=== PATIENT | male | born 1990 | race Caucasian/White ===

== ENCOUNTER 2018-03-23 23:41 | Inpatient (IN) | payer BC, OTHER ==
[2018-03-24 00:47] LABS: ALT (SGPT) 8 U/L (8-55); AST (SGOT) 16 U/L (5-34); Acetaminophen Less than 6.0 mcg/mL (10.0-30.0); Albumin 4.7 g/dL (3.5-5.0); Alcohol Less than 10 mg/dL (Less than 10); Alkaline Phosphatase 112 U/L (40-150); Anion Gap 15 mmol/L (10-20); BUN (Urea Nitrogen) 19 mg/dL (8.9-20.6); Band 5 % (5-11); Bilirubin, Total 0.6 mg/dL (0.2-1.2); Calc. Creatinine Clearance 0 mL/min (70-130); Carbon Dioxide 31 mmol/L (22-29); Chloride 99 mmol/L (98-107); Estimated GFR-MDRD 42; Globulin 3.3 g/dL (2.4-3.5); Glucose 132 mg/dL (70-105); Hemoglobin 15.9 g/dL (14.0-18.0); Lymphocytes 11 % (21-51); MDiff Complete? YES; Magnesium 1.6 mg/dL (1.6-2.6); Mean Corpuscular HGB CONC 34.6 g/dL (32.0-36.0); Mean Corpuscular Hemoglobin 30.4 pg (27.0-31.0); Mean Corpuscular Volume 87.8 fL (78.0-98.0); Mean Platelet Volume 6.7 fL (7.4-10.4); Monocytes 4 % (0-10); Neutrophil 80 % (42-75); PLT Morphology Comment Appears Adequate; Platelet Count 280 thou/uL (130-400); Potassium 3.1 mmol/L (3.5-5.1); RBC Distribution Width 10.4 % (11.5-14.5); Red Blood Cell (RBC) Count 5.22 mill/uL (4.70-6.10); Salicylate Less than 8.0 mg/dL (15.0-30.0); Sodium 142 mmol/L (136-145); White Blood Cell (WBC) Count 16.1 thou/uL (4.8-10.8)
[2018-03-24 00:48] LABS: Calcium 16.9 mg/dL (7.8-10.44)
[2018-03-24 01:01] LABS: Lipase 3295 U/L (8-78)
[2018-03-24 01:10] LABS: HIV (1/2) Antibody/Antigen Non-Reactive (NonReactive); HIV 1/2 INDEX 0.08 S/CO (<1.00); Thyroid Stimulating Hormone 1.3834 uIU/mL (0.35-4.94)
--- NOTE | 2018-03-24 01:24 | PDOC.FPRHP ---
- History of Present Illness Chief Complaint: Vomiting & AMS History of Present Illness: Mr Rockwell is a 27yo Male presenting [facility] for [facility] and AMS. At time of interview he was a poor historian 2/2 disorientation and incomprehensible speech at times. Systems started this morning, he last vomited at 3pm. He reports abdominal pain that is diffuse but worse in the LLQ. Stated he has a hx of recurrent kidney stones and hypercalcemia. Also reported hx of pancreatitis that resulted from an episode of hypercalcemia. Family hx notable for mother with recurrent kidney stones and hypercalcemia. ED Course: After lab result of Ca 16.9, patient received 3L NS, calcitonin 4mg/kg, Zoledronic acid 4mg, and orders to receive lasix after fluid resuscitation. He also received an extensive workup for his AMS including UDS (positive only for prescribed benzos), head CT which was unremarkable, HIV neg, TSH normal, ammonia nml. His lipase was elevated at [address] was performed. CT: Moderate-large amt of fluid upper abdomen, bilateral paracolic spaces and small amount in pelvis. Suspicious for pancreatitis. - Allergies/Adverse Reactions Allergies Allergy/AdvReac Type Severity Reaction Status Date / Time promethazine Allergy Verified 03/24/18 01:03 - Home Medications Medication Instructions Recorded Confirmed Type Cetirizine HCl 10 mg PO DAILY 03/24/18 03/24/18 History Cyclobenzaprine [Flexeril] 10 mg PO BID 03/24/18 03/24/18 History FLUoxetine HCl 40 mg PO DAILY 03/24/18 03/24/18 History Fluticasone Propionate [Flonase 1 spray EA NARE DAILY 03/24/18 03/24/18 History Nasal [place]] Hydrocortisone 1% Cream 1 applic TOP TID 03/24/18 03/24/18 History Lamotrigine [lamoTRIgine] 200 mg PO BID 03/24/18 03/24/18 History cloNIDine [Catapres] 0.1 mg PO BID 03/24/18 03/24/18 History hydrOXYzine HCl [Hydroxyzine HCl] 50 mg PO BID 03/24/18 03/24/18 History traZODone HCl [Trazodone HCl] 50 mg PO HS 03/24/18 03/24/18 History - History PMHx: Bipolar disorder, OCD, borderline personality disorder, hypercalcemia, kidney stones, prior drug abuse PSHx: ?nephrolithotomy vs.lithotripsy FHx: Mother- hypercalcemia and recurrent kidney stones Social: Has been in Prison since January. Denies alcohol, drug, tobacco use. Hx of tobacco and drug abuse - Review of Systems ROS unobtainable: due to mental status (unable to obtain full ROS 2/2 disorientation) General: denies: fever/chills Respiratory: denies: shortness of breath Cardiovascular: denies: chest pain Gastrointestinal: reports: vomiting, abdominal pain - Vital signs BP: 154/107 HR: 120 RR: 16 Tmax: 98.4 Pox: 99% on RA - Physical Exam Constitutional: other (shaking, alert, oriented to person and year. Not oriented to place or situation.) HEENT: normocephalic and atraumatic, PERRLA, TM's clear and intact, other (dry mucous membranes) Neck: supple, trachea midline Heart: RRR, no murmurs/rubs/gallops Lungs: CTAB, no respiratory distress, no wheezing Abdomen: bowel sounds present, other (tender to palpation all 4 quadrants. Most severe in LLQ) Musculoskeletal: normal structure Skin: capillary refill <2 seconds, other (erythematous macular truncal rash starting at neck and extending lower abdomen) Psychiatric: other (fast speech, incoherent thought process, loose associations. Poor insight.) FMR H&P: Results - Labs Result Diagrams: 03/24/18 00:18 03/24/18 00:18 Lab results: WBC 16.1 thou/uL (4.8-10.8) H 03/24/18 00:18 Hgb 15.9 g/dL (14.0-18.0) 03/24/18 00:18 Hct 45.8 % (42.0-52.0) 03/24/18 00:18 MCV 87.8 fL (78.0-98.0) 03/24/18 00:18 Plt Count 280 thou/uL (130-400) 03/24/18 00:18 Band Neuts % (Manual) 5 % (5-11) 03/24/18 00:18 Sodium 142 mmol/L (136-145) 03/24/18 00:18 Potassium 3.1 mmol/L (3.5-5.1) L 03/24/18 00:18 Chloride 99 mmol/L (98-107) 03/24/18 00:18 Carbon Dioxide 31 mmol/L (22-29) H 03/24/18 00:18 BUN 19 mg/dL (8.9-20.6) 03/24/18 00:18 Creatinine 1.91 mg/dL (0.6-1.3) H 03/24/18 00:18 Glucose 132 mg/dL (70-105) H 03/24/18 00:18 Calcium 16.9 mg/dL (7.8-10.44) H* 03/24/18 00:18 Total Bilirubin 0.6 mg/dL (0.2-1.2) 03/24/18 00:18 AST 16 U/L (5-34) 03/24/18 00:18 ALT 8 U/L (8-55) 03/24/18 00:18 Alkaline Phosphatase 112 U/L (40-150) 03/24/18 00:18 Ammonia 34 umol/L (18-72) 03/24/18 00:18 Serum Total Protein 8.0 g/dL (6.0-8.3) 03/24/18 00:18 Albumin 4.7 g/dL (3.5-5.0) 03/24/18 00:18 Lipase 3295 U/L (8-78) H 03/24/18 00:18 - EKG Interpretation EKG: Sinus Tach 119 - Radiology Interpretation CT scan - head Status: report reviewed by me Additional comment: unremarkable Chest x-ray Status: report reviewed by me CT scan - abdomen Status: report reviewed by me Additional comment: Moderate-large amt of fluid upper abdomen, bilateral paracolic spaces and small amount in pelvis. Suspicious for pancreatitis. Bladder distention also noted. FMR H&P: A/P - Problem List (1) Pancreatitis Current Visit: Yes Status: Acute Code(s): K85.90 - ACUTE PANCREATITIS WITHOUT NECROSIS OR INFECTION, UNSP (2) Hypercalcemia Current Visit: Yes Status: Acute Code(s): E83.52 - HYPERCALCEMIA (3) SHELBIE (acute kidney injury) Current Visit: Yes Status: Acute Code(s): N17.9 - ACUTE KIDNEY FAILURE, UNSPECIFIED (4) Urinary retention Current Visit: Yes Status: Acute Code(s): R33.9 - RETENTION OF URINE, UNSPECIFIED (5) HTN (hypertension) Current Visit: Yes Status: Acute Code(s): I10 - ESSENTIAL (PRIMARY) HYPERTENSION (6) Bipolar 1 disorder Current Visit: Yes Status: Acute Code(s): F31.9 - BIPOLAR DISORDER, UNSPECIFIED (7) Altered mental status Current Visit: Yes Status: Acute Code(s): R41.82 - ALTERED MENTAL STATUS, UNSPECIFIED (8) Leukocytosis Current Visit: Yes Status: Acute Code(s): D72.829 - ELEVATED WHITE BLOOD CELL COUNT, UNSPECIFIED - Plan Mr Rockwell is a 27yo male presenting from [facility] with [facility] and AMS. He was found to have severe hypercalcemia and pancreatitis. 1. Hypercalcemia DDx: familial hypocalciuric hypercalcemia vs hyperparathyroidism vs malignancy - family hx (mother) of hypercalcemia and kidney stones. Prior ED visits with elevated Ca, and hx of recurrent kidney stones - admit to CCU - lipase 3295 - 3L NS in ED - 4mg/kg calcitonin in ED, repeat q6-12hr if responsive - zoledronic acid 4mg in ED - plan for lasix after fluid resuscitation - 200ml/hr NS - goal urine output of 100-150ml/hr, acuña catheter in place - pending PTH, Vit D - TSH normal 2. Pancreatitis - Abd CT: Moderate-large amt of fluid upper abdomen, bilateral paracolic spaces and small amount in pelvis. Suspicious for pancreatitis - Lipase 3295 - Abdominal pain on exam - Cont fluid resuscitation plan above - Cont to monitor - Consider GI vs. general surgery consult in AM 3. SHELBIE - Baseline Cr 1.1 - Cr 1.91 - pending lithium level, unclear what patient's home meds are - Acuña catheter in place - Monitor output 4. AMS - ddx: 2/2 to hypercalcemia vs psychological - UDS positive for Benzos - Head CT negative - HIV neg, ammonia WNL - Continue to monitor 5. Leukocytosis - Likely a result of inflammation from pancreatitis - Will trend and monitor for signs of superimposed infection - BCx pending 6. Urinary Retention - 2/2 hypercalcemia vs chronic - acuña catheter - fluid titration to UOP as above - will need voiding trial 7. Bipolar, Borderline Personality disorder, OCD - Cont home lamictal, clonidine, hydroxyzine, Fluoxetine 8. HTN - 154/107 - likely 2/2 to pain, Continue to monitor 9. Tachycardia - Sinus tachycardia on EKG - Likely 2/2 pain and agitation - Continue to monitor on tele - Will continue fluid resuscitation and pain control PPX: Lovenox, no GI ppx indicated at this time FMR H&P: Upper Level - Plan Date/Time: 03/24/18 0123 I, Sita Fernandes MD, PGY-3, have evaluated this patient and agree with findings/ plan as outlined by rn internal medicine resident.
[2018-03-24] MEDS ORDERED: Calcitonin,Salmon,Synthetic 200 UNITS/ML IM SCH (01:30)
[2018-03-24] MEDS ORDERED: Zoledronic Acid 4 MG in Sodium Chloride 0.9% 100 ML IVPB SCH (01:30)
[2018-03-24] MEDS ORDERED: Lorazepam 2 MG/ML VIAL ONE (02:07)
[2018-03-24 02:29] LABS: Bilirubin Negative (Negative); Blood, Urine Trace (Negative); Glucose, Urine (Dipstick) Negative (Negative); Leukocyte Small (Negative); Nitrite Negative (Negative); Protein, Urine (Dipstick) Trace mg/dL (Neg-Trace); Urobilinogen 0.2 mg/dL (0.2-1.0)
[2018-03-24 02:30] LABS: Bacteria/HPF None Seen HPF (None Seen); Clarity Clear (Clear); Hyaline Casts/LPF NONE SEEN LPF (0-3 Hyaline); RBC/HPF None Seen HPF (0-3); Squamous Epithelial 0-3 HPF (0-3)
[2018-03-24 02:31] LABS: Other Microscopic Description Less than 2 mL rec'd
[2018-03-24 02:38] LABS: Amphetamine Not Detected (NotDetected); Barbiturates Screen Not Detected (NotDetected); Benzodiazepine Screen Detected (NotDetected); Cocaine Metabolite Screen Not Detected (NotDetected); Medtox Reader # READER 4; Methadone Not Detected (NotDetected); Methamphetamine Not Detected (NotDetected); Opiate Screen Not Detected (NotDetected); Oxycodone Screen Not Detected (NotDetected); Phencyclidine (PCP) Not Detected (NotDetected); THC/Cannabinoid Screen Not Detected (NotDetected); Tricyclic Screen Not Detected (NotDetected)
[2018-03-24 02:39] LABS: Medtox Control Line Valid? VALID (VALID)
[2018-03-24] MEDS ORDERED: Sodium Chloride 0.9% 1,000 ML IV SCH (02:41)
[2018-03-24 02:52] VITALS: BMI 22.9
[2018-03-24] MEDS: Sodium Chloride 0.9% 1,000 ML IV SCH ×4 (03:07→20:25)
--- NOTE | 2018-03-24 03:26 | PDOC.EVN ---
Event Note - Event Note Event Note: Patient seen and examined on 03/24/2018 @ 03:00. Case discussed with Dr. Ricardo. History, exam, assessment and plan reviewed and agree with resident's documentation. Briefly this is a 27 [facility] male [facility] who presented to the ER with h/o vomiting and AMS since this morning. Patient confused and unable to give history. Information obtained from ER record. Per records patient has h/o bipolar disorder and hypercalcemia. PMH/PSH/All/Meds reviewed and agree with resident's documentation. Afebrile P 130 BP 145/105 RR 21 97% RA Exam repeated by me. Significant for A&O x 2; Abd- soft; mild tenderness in all quadrants; Neuro- moves all extremities equally. Labs: WBC=16.1; H/H= 15.9/45.8, Xz=900, K+= 3.1, BUN/Cr= 19/1.91, Ca=16.9, ammonia= 34, ALT/AST=8/16, xegcrn=[id number] CT brain- no acute findings CT Abd/pelvis- pending A/P: 1) AMS - most likely secondary to hypercalcemia - Admit to CCU - Continue IVF; monitor I/Os - minimize sedation 2) Hypercalcemia - check PTH, vitamin D, TSH - Continue IVF and monitor urine output - BMP q6 hours 3) Pancreatitis- most likely secondary to hypercalcemia - NPO - continue IVF 4) SHELBIE - continue IVF; watch urine output
[2018-03-24] MEDS: Furosemide 20 MG/2 ML VIAL SLOW IVP SCH ×2 (06:20→15:06)
[2018-03-24 06:38] LABS: ALT (SGPT) Less than 7 U/L (8-55); AST (SGOT) 13 U/L (5-34); Albumin 3.6 g/dL (3.5-5.0); Alkaline Phosphatase 82 U/L (40-150); Anion Gap 11 mmol/L (10-20); BUN (Urea Nitrogen) 19 mg/dL (8.9-20.6); Bilirubin, Total 0.3 mg/dL (0.2-1.2); Calc. Creatinine Clearance 62 mL/min (70-130); Calcium 12.9 mg/dL (7.8-10.44); Carbon Dioxide 26 mmol/L (22-29); Chloride 110 mmol/L (98-107); Estimated GFR-MDRD 50; Globulin 2.4 g/dL (2.4-3.5); Glucose 111 mg/dL (70-105); Potassium 3.4 mmol/L (3.5-5.1); Sodium 144 mmol/L (136-145)
[2018-03-24] MEDS ORDERED: CCU Electrolyte Replacement 1 EACH FS SCH (08:15)
[2018-03-24] MEDS ORDERED: Potassium Chloride 20 MEQ in Premix Bag 1 BAG IVPB SCH (08:15)
[2018-03-24] MEDS ORDERED: Potassium Phosphate 12 MMOL in Sodium Chloride 0.9% 250 ML 250 ML IV PRN (08:20)
[2018-03-24] MEDS ORDERED: Magnesium 2 GM/NS 0.9% 100 ML 2 GM in Premix Bag 1 BAG IVPB PRN (08:20)
[2018-03-24] MEDS ORDERED: Potassium Chloride 40 MEQ in Sodium Chloride 0.9% 250 ML 250 ML IVPB PRN (08:20)
[2018-03-24] MEDS ORDERED: Magnesium Oxide 400 MG TAB PO PRN ×2 (08:20)
[2018-03-24] MEDS ORDERED: Potassium Chloride 40 MEQ in Premix Bag 1 BAG IVPB PRN (08:20)
[2018-03-24] MEDS ORDERED: Potassium Chloride 20 MEQ TAB PO PRN (08:20)
[2018-03-24] MEDS ORDERED: Potassium Phosphate 15 MMOL in Sodium Chloride 0.9% 250 ML 250 ML IV PRN (08:20)
[2018-03-24] MEDS ORDERED: Potassium Phosphate 9 MMOL in Sodium Chloride 0.9% 100 ML IVPB PRN (08:20)
[2018-03-24] MEDS: Hydrocortisone 1% Cream 30 GM TUBE TOP SCH ×3 (09:00→20:28)
--- NOTE | 2018-03-24 09:15 | RAD ---
PORTABLE AP CHEST RADIOGRAPH: Date: 03-24-18 History: Sudden onset of altered mental status and vomiting. Comparison: 04-29-15 FINDINGS: Cardiac silhouette and pulmonary vasculature are within normal limits. Lungs are clear. There is mild right convex curvature of the thoracic spine. There has been no interval change from the prior exam. IMPRESSION: No acute cardiopulmonary process. POS: [facility]
--- NOTE | 2018-03-24 09:26 | CON ---
DATE OF CONSULTATION: 03/24/2018 This is 35 minutes of critical care time. REASON FOR CONSULTATION: Hypercalcemia. HISTORY OF PRESENT ILLNESS: The patient is a 27-year-old male who was brought to the [facility] from long-term. He has been in long-term since 02/04/2018 on charges of distributing drugs. Apparently, shruthi lam is also a drug user. The nurse at the long-term says the patient has been on a 30-day tapered course of Librium, but is currently off that medication. When he presented to the emergency room, he was vomiting, had altered mental status. His calcium lev el was 16.9. He received IV fluids, calcitonin and zoledronic acid. His calcium level is now down t o 12. He is still quite confused and it is hard to get any reliable history from him. In looking ba ck at his old records in this hospital from 2011 he was mildly hypercalcemic at that time with a calc ium level of 12 in the emergency room. I do not think any further workup was done at that time. PAST MEDICAL HISTORY: 1. Bipolar disorder. 2. Borderline personality disorder. 3. Kidney stones. PAST SURGICAL HISTORY: Lithotripsy. FAMILY MEDICAL HISTORY: Mother has hypercalcemia and recurrent kidney issues. SOCIAL HISTORY: Nonsmoker, does not consume alcohol, but does use illicit drugs. REVIEW OF SYSTEMS: Unobtainable as the patient is not alert or oriented. MEDICATIONS PRIOR TO ADMISSION: Cetirizine, Flexeril, fluoxetine, hydrocortisone, Lamictal, clonidin e, hydroxyzine and trazodone. PHYSICAL EXAMINATION: VITAL SIGNS: Temperature 97.9, pulse 125, blood pressure 146/104, saturation 99%. GENERAL: The patient is lying in bed, he is calm, but he is difficult to comprehend when he starts t alking. HEENT: Pupils react. Sclerae icteric. Oropharynx clear. NECK: Without adenopathy or JVD. LUNGS: Clear without wheezing or rhonchi. CARDIOVASCULAR: S1, S2, tachycardic without murmur. ABDOMEN: Soft, nontender, nondistended. EXTREMITIES: No clubbing, cyanosis, or edema. LABORATORY DATA: Sodium 144, potassium 3.4, chloride 110, CO2 26, BUN 19, creatinine 1.6, glucose 11 1, calcium level 12.9. Lipase level 3295. White blood cell count 16, hematocrit 45.8, platelet coun t 280. Sodium 144, potassium 3.4, chloride 110, CO2 26, BUN 19, creatinine 1.6, glucose 111. Albumi n 3.6. Chest x-ray showed no mass, effusion or infiltrate. ASSESSMENT: 1. Severe hypercalcemia. Previous elevated calcium would suggest that this is some type of familial process. His parathyroid hormone levels were actually low. His thyroid function seemed to be reaso nable. This would bring in to the differential things like hypocalciuria hypercalcemia, Milk-alkali syndrome, and other familial causes. I would also go over his drug profile and see if any of his cur rent medications could cause hypercalcemia. 2. Pancreatitis - this may be caused by the hypercalcemia or by some of the medications that he is o n. I would favor the chronic hypercalcemia. RECOMMENDATIONS: 1. IV fluids as you are doing. 2. Phosphate binders has been given. 3. Zoledronic acid has been given. 4. Calcitonin. 5. Consider 24-hour urine for calcium excretion. 6. Consider endocrine or renal input. Thank you for the referral. The patient could probably be transferred out to telemetry or [facility] this afternoon.
[2018-03-24] MEDS: cloNIDine 0.1 MG TAB PO SCH ×2 (09:40→20:27)
[2018-03-24] MEDS: FLUoxetine HCl 20 MG CAP PO SCH (09:40)
[2018-03-24] MEDS: Enoxaparin Sodium 40 MG/0.4 ML SYRINGE SC SCH (09:40)
[2018-03-24] MEDS: lamoTRIgine 100 MG TAB PO SCH ×2 (09:43→20:27)
[2018-03-24] MEDS: hydrOXYzine 25 MG TAB PO SCH ×2 (09:43→20:28)
--- NOTE | 2018-03-24 09:52 | CT ---
PRELIMINARY REPORT/[facility]/EMERGENTY AFTER-HOURS PROCEDURE CT Head Without Intravenous Contrast CLINICAL HISTORY: 27 years old, male; Signs and symptoms; Altered mental status/memory loss; Confusion or disorientatio n; Patient HX: M27, sudden onset today of AMS with vomiting. TECHNIQUE: Axial computed tomography images of the head/brain without intravenous contrast. COMPARISON: No relevant prior studies available. FINDINGS: Limitations: Motion artifact limits this study. Brain: No evidence of acute intracranial hemorrhage, extraxial fluid or midline shift. No evidence of acute large vessel infarction. Ventricles: Normal. No ventriculomegaly. Bones/joints: Normal. No acute fracture. Sinuses: Normal as visualized. No acute sinusitis. Mastoid air cells: Normal as visualized. No mastoid effusion. Soft tissues: Normal. IMPRESSION: 1. Motion artifact limits this study. 2. No evidence of acute intracranial hemorrhage, extraxial fluid or midline shift. 3. No evidence of acute large vessel infarction. Thank you for allowing us to participate in the care of your patient. Dictated and Authenticated by: Logan Israel MD 03/24/2018 12:46 AM Central Time ([place] & [place]) FINAL REPORT CT BRAIN WITHOUT CONTRAST: I agree with the preliminary report given by Dr. Logan Durham of [facility]. POS: [facility]
--- NOTE | 2018-03-24 09:56 | CT ---
PRELIMINARY REPORT/[facility]/EMERGENTY AFTER-HOURS PROCEDURE Addendum created by Logan Israel MD on 03/24/2018 2:29 AM Central Time ([place] & [place]) THIS REPORT C ONTAINS FINDINGS THAT MAY BE CRITICAL TO PATIENT CARE. The findings were verbally communicated via te lephone conference with ADAM Chi at 2:29 AM CDT on 03/24/2018. The findings were acknowledg ed and understood. Initial Report created on 03/24/2018 2:09 AM Central Time ([place] & [place]) CT Abdomen and Pelvis With Intravenous Contrast CLINICAL HISTORY: 27 years old, male; Pain; Abdominal pain; Generalized; Patient HX: Er 9; 27 yo m presents to ed from [facility] with vomiting and AMS. Police reports PT woke up vomiting yesterday morning and became AMS at [place] during the day, so they decided to bring him to ed. PT reports abdominal pain upon palpation . PT denies fever. PT reports chronic hypercalcemia, but no other medical problems. TECHNIQUE: Axial computed tomography images of the abdomen and pelvis with intravenous contrast. Coronal reforma tted images were created and reviewed. COMPARISON: No relevant prior studies available. FINDINGS: Lower thorax: No acute findings. ABDOMEN: Liver: Normal. No mass. Gallbladder and bile ducts: Gallbladder appears contracted, limits evaluation. Pancreas: Normal. No ductal dilation. Spleen: Normal. No splenomegaly. Adrenals: Normal. No mass. Kidneys and ureters: Small 1 mm stones left kidney. Bilateral renal hypodensities - suspected simple cysts. Stomach and bowel: Normal. No obstruction. No mucosal thickening. Appendix: Visualized portions of appendix appear normal. PELVIS: Bladder: Unremarkable as visualized. Reproductive: Prostate appears within normal limits. ABDOMEN and PELVIS: Intraperitoneal space: Moderate-large amount of fluid upper abdomen, bilateral paracolic spaces and s mall amount in pelvis. Bones/joints: No acute fracture. No dislocation. Soft tissues: Unremarkable. Vasculature: Normal. No abdominal aortic aneurysm. Lymph nodes: Normal. No enlarged lymph nodes. IMPRESSION: 1. Moderate-large amount of fluid upper abdomen, bilateral paracolic spaces and small amount in pelvi s. Findings suspicious for pancreatitis. -- Please correlate with patient pancreas enzyme levels to e xclude pancreatitis. 2. Left renal nonobstructive stones. Thank you for allowing us to participate in the care of your patient. Dictated and Authenticated by: Logan Israel MD 03/24/2018 2:09 AM Central Time ([place] & [place]) FINAL REPORT CT ABDOMEN AND PELVIS NONCONTRAST: DATE: 03/24/18. TIME: Performed on an emergency basis at 0125 hours. HISTORY: Abdominal pain. Pancreatitis. FINDINGS: Findings agree with the preliminary report by Dr. Durham from [facility]. Free fluid through out the abdomen is confirmed. Findings consistent with acute pancreatitis. Tiny nonobstructing bila teral renal calculi. POS: [facility]
[2018-03-24] MEDS ORDERED: ISOVUE-370 76%-LOCM 1 ML ONE (10:33)
[2018-03-24] MEDS ORDERED: Ondansetron ODT 4 MG TAB SL PRN (11:13)
[2018-03-24 11:34] LABS: ALT (SGPT) 7 U/L (8-55); AST (SGOT) 14 U/L (5-34); Albumin 3.9 g/dL (3.5-5.0); Alkaline Phosphatase 88 U/L (40-150); Anion Gap 12 mmol/L (10-20); BUN (Urea Nitrogen) 19 mg/dL (8.9-20.6); Bilirubin, Total 0.3 mg/dL (0.2-1.2); Calc. Creatinine Clearance 63 mL/min (70-130); Carbon Dioxide 28 mmol/L (22-29); Chloride 108 mmol/L (98-107); Estimated GFR-MDRD 50; Globulin 2.6 g/dL (2.4-3.5); Glucose 105 mg/dL (70-105); Potassium 3.2 mmol/L (3.5-5.1); Protein, Total 6.5 g/dL (6.0-8.3)
[2018-03-24 11:55] LABS: Calcium 12.7 mg/dL (7.8-10.44); Sodium 145 mmol/L (136-145)
[2018-03-24 13:06] LABS: Hep C IgG Ab Non-Reactive (NonReactive); Hep C Index 0.15 S/CO (0-0.79)
[2018-03-24] MEDS ORDERED: Calcitonin,Salmon,Synthetic 200 UNITS/ML SC SCH (13:30)
--- NOTE | 2018-03-24 14:11 | ADD-PRG ---
DATE OF SERVICE: 03/24/2018 This is an addendum to the note of Dr. Kisha Vera MD Mr. Rockwell is a 27-year-old white male patient, who [facility] local [facility] for [facility]cal[facility]. He was treated appropriately and his calcium levels have now dropped accordingly. Even though his PTH is low, I would favor hypocalciuric hypercalcemia as the cause of Mr. Rockwell's hypercalcemia. He also has acute pancreatitis, likely secondary to the hypercalcemia. In the event, we are currently worki ng up other causes of hypercalcemia including a 24-hour urine for calcium. He has a strong family hi story of kidney stones and possible history of hypocalciuric hypercalcemia. Clinically, he has impro andrew and can likely be transferred to a regular floor bed later this afternoon.
--- NOTE | 2018-03-24 17:14 | EKG ---
Test Reason : Blood Pressure : / mmHG Vent. Rate : 128 BPM Atrial Rate : 128 BPM P-R Int : 140 ms QRS Dur : 086 ms QT Int : 274 ms P-R-T Axes : 057 080 266 degrees QTc Int : 400 ms Sinus tachycardia Septal infarct , age undetermined possible Nonspecific ST-T changes widespread Abnormal ECG When compared with ECG of 13-NOV-2016 02:32, Vent. rate has increased BY 51 BPM Non-specific change in ST segment in Inferior leads Non-specific change in ST segment in Anterior leads T wave inversion now evident in Inferior leads Nonspecific T wave abnormality, worse in Anterolateral leads Confirmed by DR. Aidee SALINAS ([id number]) on 03/24/2018 5:13:56 PM Referred By: AMBROCIO Confirmed By:DR. Aidee SALINAS
[2018-03-24 17:35] LABS: Anion Gap 14 mmol/L (10-20); BUN (Urea Nitrogen) 17 mg/dL (8.9-20.6); Calc. Creatinine Clearance 70 mL/min (70-130); Carbon Dioxide 27 mmol/L (22-29); Chloride 105 mmol/L (98-107); Estimated GFR-MDRD 57; Glucose 90 mg/dL (70-105); Sodium 143 mmol/L (136-145)
[2018-03-24 17:41] LABS: Calcium 12.4 mg/dL (7.8-10.44); Potassium 2.8 mmol/L (3.5-5.1)
[2018-03-24] MEDS ORDERED: Potassium Chloride 40 MEQ in Sodium Chloride 0.9% 250 ML 250 ML IVPB SCH (19:00)
[2018-03-24] MEDS: traZODone HCl 50 MG TAB PO SCH (20:33)
[2018-03-25] MEDS: Sodium Chloride 0.9% 1,000 ML IV SCH ×3 (02:27→16:45)
[2018-03-25 05:10] LABS: Anion Gap 10 mmol/L (10-20); BUN (Urea Nitrogen) 15 mg/dL (8.9-20.6); Band 7 % (5-11); Calc. Creatinine Clearance 76 mL/min (70-130); Calcium 10.9 mg/dL (7.8-10.44); Carbon Dioxide 27 mmol/L (22-29); Chloride 107 mmol/L (98-107); Eosinophils 1 % (0-10); Estimated GFR-MDRD 62; Glucose 79 mg/dL (70-105); Hemoglobin 12.2 g/dL (14.0-18.0); Lymphocytes 7 % (21-51); MDiff Complete? YES; Mean Corpuscular HGB CONC 34.4 g/dL (32.0-36.0); Mean Corpuscular Hemoglobin 30.8 pg (27.0-31.0); Mean Corpuscular Volume 89.5 fL (78.0-98.0); Mean Platelet Volume 7.4 fL (7.4-10.4); Monocytes 5 % (0-10); Neutrophil 80 % (42-75); PLT Morphology Comment Appears Adequate; Platelet Count 221 thou/uL (130-400); Potassium 3.1 mmol/L (3.5-5.1); RBC Distribution Width 10.5 % (11.5-14.5); Red Blood Cell (RBC) Count 3.98 mill/uL (4.70-6.10); Sodium 141 mmol/L (136-145); White Blood Cell (WBC) Count 14.5 thou/uL (4.8-10.8)
[2018-03-25] MEDS ORDERED: Furosemide 40 MG/4 ML VIAL ONE (05:25)
[2018-03-25] MEDS: Furosemide 20 MG/2 ML VIAL SLOW IVP SCH ×2 (05:46→14:58)
--- NOTE | 2018-03-25 08:45 | PDOC.FM ---
- Subjective Subjective: The patient reports continued pain in the ALIYAH region and LLQ. He reports a little N/V. He is currently NPO with meds with sips of water. He is wanting to start eating more. - Objective Vital Signs & Weight: Vital Signs (12 hours) Temp Pulse Resp BP Pulse Ox 03/25/18 07:20 98.8 F 104 H 16 130/84 100 03/25/18 04:30 98.6 F 107 H 16 122/72 98 Weight Weight 62.414 kg Most Recent Monitor Data Heart Rate from ECG 125 NIBP 146/102 NIBP BP-Mean 114 Respiration from ECG 28 SpO2 7 I&O: 03/24/18 03/25/18 03/26/18 06:59 06:59 06:59 Intake Total 781 1970 Output Total 0 2625 Balance 781 -655 Result Diagrams: 03/25/18 04:17 03/25/18 04:17 Phys Exam - Physical Examination Constitutional: NAD HEENT: moist MMs Respiratory: no wheezing, no rales, no rhonchi, clear to auscultation bilateral tachycardic, regular rhythm, no murmurs or gallops no distention, normoactive bowel sounds, TTP diffusely, worse in ALIYAH region voluntary guarding, no rebound Musculoskeletal: no edema, pulses present Neurological: normal sensation, moves all 4 limbs Psychiatric: A&O x 3 Skin: normal turgor, cap refill <2 seconds Deviation from normal: rash present that has faded on trunk, erythematous patchy rash Dx/Plan (1) Hypercalcemia Code(s): E83.52 - HYPERCALCEMIA Status: Acute (2) Pancreatitis Code(s): K85.90 - ACUTE PANCREATITIS WITHOUT NECROSIS OR INFECTION, UNSP Status: Acute Qualifiers: Chronicity: acute Pancreatitis type: other Acute pancreatitis complication: no infection or necrosis Qualified Code(s): K85.80 - Other acute pancreatitis without necrosis or infection (3) Leukocytosis Code(s): D72.829 - ELEVATED WHITE BLOOD CELL COUNT, UNSPECIFIED Status: Acute Qualifiers: Leukocytosis type: unspecified Qualified Code(s): D72.829 - Elevated white blood cell count, unspecified (4) Hypokalemia Code(s): E87.6 - HYPOKALEMIA Status: Acute (5) Hypomagnesemia Code(s): E83.42 - HYPOMAGNESEMIA Status: Acute (6) Sinus tachycardia Code(s): R00.0 - TACHYCARDIA, UNSPECIFIED Status: Acute (7) Recurrent nephrolithiasis Code(s): N20.0 - CALCULUS OF KIDNEY Status: Acute (8) SHELBIE (acute kidney injury) Code(s): N17.9 - ACUTE KIDNEY FAILURE, UNSPECIFIED Status: Acute (9) Altered mental status Code(s): R41.82 - ALTERED MENTAL STATUS, UNSPECIFIED Status: Acute Qualifiers: Altered mental status type: unspecified Qualified Code(s): R41.82 - Altered mental status, unspecified (10) Bipolar 1 disorder Code(s): F31.9 - BIPOLAR DISORDER, UNSPECIFIED Status: Acute (11) HTN (hypertension) Code(s): I10 - ESSENTIAL (PRIMARY) HYPERTENSION Status: Acute Qualifiers: Hypertension type: essential hypertension Qualified Code(s): I10 - Essential (primary) hypertension (12) H/O: substance abuse Code(s): Z87.898 - PERSONAL HISTORY OF OTHER SPECIFIED CONDITIONS Status: Acute - Plan Plan: Mr Rockwell is a 27yo male presenting from intermediate with vomiting and AMS. He was found to have severe hypercalcemia and pancreatitis. 1. Hypercalcemia DDx: familial hypocalciuric hypercalcemia vs malignancy vs TB vs drug induced Family hx of hypercalcemia and recurrent kidney stones. Prior ED visits with elevated Ca. He reports being previously admitted to [facility] for pancreatitis and hypercalcemia with Ca of 22. He reports that despite an extensive workup they were unable to figure out what caused his hypercalcemia. His symptoms started initially about 4 years ago. He says his Ca is normally around 11-12. On presentation it was 16.9 and trended up to 17, but after one dose of Calcitonin and Zoledronic Acid it trended down significantly. He has also received fluids and lasix. PTH was low. TSH was normal. [place] level negative. UDS negative for everything except benzos that he takes at home - NS @ 150 - Lasix 20mg IV BID - goal urine output of 100-150ml/hr, unable to pass acuña - Vit D, PTHrP pending - Quant gold pending - 24 hr urine Ca pending 2. Pancreatitis Abd CT: Moderate-large amt of fluid upper abdomen, bilateral paracolic spaces and small amount in pelvis. Lipase 3295. Pt has h/o pancreatitis 2/2 hypercalcemia in the past. - NS @ 150 - Cont to monitor - Pain control with morphine - Zofran prn - NPO with ice chips currently, will consider advancing diet when pt's pain is improved 3. SHELBIE - Baseline Cr 1.1. Cr 1.91 on admission, has downtrended s/p fluid resuscitation - Monitor output 4. AMS - ddx: 2/2 to hypercalcemia vs psychological, has improved when calcium improved - UDS positive for Benzos - Head CT negative - HIV neg, ammonia WNL - Continue to monitor 5. Leukocytosis - Likely a result of inflammation from pancreatitis - Will trend and monitor for signs of superimposed infection - BCx pending 6. Urinary Retention - 2/2 hypercalcemia vs chronic - unable to place acuña catheter. May consider urology consult if pt unable to urinate on his own - fluid titration to UOP as above 7. Bipolar, Borderline Personality disorder, OCD - Cont home lamictal, clonidine, hydroxyzine, Fluoxetine 8. HTN - Cont home clonidine 9. Tachycardia - Sinus tachycardia on EKG - Likely 2/2 pain and agitation along with pancreatitis - Continue to monitor on tele - Will continue fluid resuscitation and pain control 10. Rash Concerning for syphilis vs pityriasis rosea - Will check RPR, monitor - appears to be improving 11. Hypokalemia - Replete and monitor 12. Hypomagnesemia - Replete and monitor PPX: Lovenox, no GI ppx indicated at this time
[2018-03-25] MEDS: Hydrocortisone 1% Cream 30 GM TUBE TOP SCH ×3 (08:46→20:22)
[2018-03-25] MEDS: hydrOXYzine 25 MG TAB PO SCH ×2 (08:47→20:18)
[2018-03-25] MEDS: cloNIDine 0.1 MG TAB PO SCH ×2 (08:49→20:18)
[2018-03-25] MEDS: lamoTRIgine 100 MG TAB PO SCH ×2 (08:49→20:18)
[2018-03-25] MEDS: Enoxaparin Sodium 40 MG/0.4 ML SYRINGE SC SCH (08:49)
[2018-03-25] MEDS: FLUoxetine HCl 20 MG CAP PO SCH (08:50)
[2018-03-25] MEDS ORDERED: Magnesium Sulfate 2 GM in Sodium Chloride 0.9% 100 ML IVPB SCH (09:15)
[2018-03-25] MEDS ORDERED: Potassium Chloride 20 MEQ in Premix Bag 1 BAG IVPB SCH (09:30)
[2018-03-25] MEDS ORDERED: Potassium Chloride 20 MEQ TAB PO SCH ×2 (11:30→16:00)
--- NOTE | 2018-03-25 13:55 | ADD-PRG ---
DATE OF SERVICE: 03/25/2018 This is an addendum to the note of Dr. Kisha Vera. Mr. Rockwell is awake and alert this morning. His vital signs are stable. He still has some degree of abdominal pain, but his appetite is good and he has no nausea. We will very slowly and carefully adv ance his diet as he is asking for more to eat. His serum calcium has dropped to 10.9. BUN is 15, cr eatinine is 1.35. Clinically, the patient has improved. He tells us that several years ago he was a dmitted at [facility] for almost an identical problem of hypercalcemia and acute pancreatitis. At that time, he states that a very large workup was done for his hypocalcemia, but no etiology found. We wi ll try to obtain those records and/or discussed the case with Dr. Grace who was the field specialist cesar andres at that time.
[2018-03-25 15:40] LABS: Calcium 10.9 mg/dL (7.8-10.44); Carbon Dioxide 29 mmol/L (22-29); Chloride 105 mmol/L (98-107); Glucose 83 mg/dL (70-105); Potassium 3.1 mmol/L (3.5-5.1); Sodium 139 mmol/L (136-145)
[2018-03-25 15:41] LABS: Calc. Creatinine Clearance 76 mL/min (70-130); Estimated GFR-MDRD 67
[2018-03-25 15:42] LABS: BUN (Urea Nitrogen) 13 mg/dL (8.9-20.6)
[2018-03-25 15:49] LABS: Anion Gap 11 mmol/L (10-20)
[2018-03-25] MEDS: traZODone HCl 50 MG TAB PO SCH (20:19)
[2018-03-26] MEDS: Sodium Chloride 0.9% 1,000 ML IV SCH ×4 (01:09→18:20)
[2018-03-26 04:33] LABS: Syphilis Antibody Nonreactive (Nonreactive); Syphilis Antibody Index 0.06 S/CO (<1.00 Non-Reactive)
[2018-03-26 04:46] LABS: #Eosinphils 0.2 thou/uL (0.0-0.7); #Lymphocytes 2.3 thou/uL (1.20-3.40); #Monocytes 0.8 thou/uL (0.11-0.59); #Neutrophils 6.4 thou/uL (1.40-6.50); %Basophils 0.3 % (0.0-1.0); %Eosinophils 2.2 % (0.0-10.0); %Lymphocytes 23.3 % (21.0-51.0); %Monocytes 8.5 % (0.0-10.0); %Neutrophils 65.8 % (42.0-75.0); Hemoglobin 11.6 g/dL (14.0-18.0); Mean Corpuscular HGB CONC 34.1 g/dL (32.0-36.0); Mean Corpuscular Hemoglobin 30.8 pg (27.0-31.0); Mean Corpuscular Volume 90.2 fL (78.0-98.0); Mean Platelet Volume 7.4 fL (7.4-10.4); Platelet Count 186 thou/uL (130-400); RBC Distribution Width 10.5 % (11.5-14.5); Red Blood Cell (RBC) Count 3.77 mill/uL (4.70-6.10); White Blood Cell (WBC) Count 9.7 thou/uL (4.8-10.8)
[2018-03-26 05:03] LABS: Anion Gap 9 mmol/L (10-20); BUN (Urea Nitrogen) 10 mg/dL (8.9-20.6); Calc. Creatinine Clearance 80 mL/min (70-130); Carbon Dioxide 27 mmol/L (22-29); Chloride 108 mmol/L (98-107); Estimated GFR-MDRD 72; Glucose 79 mg/dL (70-105); Magnesium 1.3 mg/dL (1.6-2.6); Potassium 3.3 mmol/L (3.5-5.1); Sodium 141 mmol/L (136-145)
[2018-03-26] MEDS ORDERED: Magnesium Oxide 400 MG TAB PO SCH (07:30)
[2018-03-26] MEDS ORDERED: Potassium Chloride 20 MEQ TAB PO SCH (07:30)
[2018-03-26] MEDS: Hydrocortisone 1% Cream 30 GM TUBE TOP SCH ×3 (07:46→19:51)
[2018-03-26] MEDS: Furosemide 20 MG/2 ML VIAL SLOW IVP SCH ×2 (07:51→15:26)
[2018-03-26] MEDS: cloNIDine 0.1 MG TAB PO SCH ×2 (07:53→19:50)
[2018-03-26] MEDS: lamoTRIgine 100 MG TAB PO SCH ×2 (07:53→19:50)
[2018-03-26] MEDS: FLUoxetine HCl 20 MG CAP PO SCH (07:54)
[2018-03-26] MEDS: hydrOXYzine 25 MG TAB PO SCH ×2 (07:54→19:50)
[2018-03-26] MEDS: Enoxaparin Sodium 40 MG/0.4 ML SYRINGE SC SCH (07:54)
--- NOTE | 2018-03-26 08:54 | PDOC.FM ---
- Subjective Subjective: Patient reports abdominal pain with eating clear liquids. He said he thinks he over did it and it was a little better when he decreased the quantity of the food. Denies any nausea or fevers. - Objective MAR Reviewed: Yes Vital Signs & Weight: Vital Signs (12 hours) Temp Pulse Resp BP BP Pulse Ox 03/26/18 07:53 116/73 03/26/18 07:48 98.7 F 107 H 18 116/73 98 03/25/18 23:59 98.5 F 99 18 101/66 Weight Weight 62.414 kg Most Recent Monitor Data Heart Rate from ECG 125 NIBP 146/102 NIBP BP-Mean 114 Respiration from ECG 28 SpO2 7 I&O: 03/25/18 03/26/18 03/27/18 06:59 06:59 06:59 Intake Total 1970 1900 Output Total 2625 Balance -655 1900 Result Diagrams: 03/26/18 03:45 03/26/18 03:45 Phys Exam - Physical Examination Constitutional: NAD HEENT: moist MMs, sclera anicteric Respiratory: no wheezing, no rales, no rhonchi, clear to auscultation bilateral tachycardic, regular rhythm, no murmurs, gallops Gastrointestinal: soft, positive bowel sounds tender to palpation diffusely, worse in ALIYAH region, voluntary guarding Musculoskeletal: no edema, pulses present Neurological: non-focal, moves all 4 limbs Psychiatric: normal affect, A&O x 3 Skin: normal turgor, cap refill <2 seconds Dx/Plan (1) Hypercalcemia Code(s): E83.52 - HYPERCALCEMIA Status: Acute (2) Pancreatitis Code(s): K85.90 - ACUTE PANCREATITIS WITHOUT NECROSIS OR INFECTION, UNSP Status: Acute Qualifiers: Chronicity: acute Pancreatitis type: other Acute pancreatitis complication: no infection or necrosis Qualified Code(s): K85.80 - Other acute pancreatitis without necrosis or infection (3) Leukocytosis Code(s): D72.829 - ELEVATED WHITE BLOOD CELL COUNT, UNSPECIFIED Status: Acute Qualifiers: Leukocytosis type: unspecified Qualified Code(s): D72.829 - Elevated white blood cell count, unspecified (4) Hypokalemia Code(s): E87.6 - HYPOKALEMIA Status: Acute (5) Hypomagnesemia Code(s): E83.42 - HYPOMAGNESEMIA Status: Acute (6) Sinus tachycardia Code(s): R00.0 - TACHYCARDIA, UNSPECIFIED Status: Acute (7) Recurrent nephrolithiasis Code(s): N20.0 - CALCULUS OF KIDNEY Status: Acute (8) SHELBIE (acute kidney injury) Code(s): N17.9 - ACUTE KIDNEY FAILURE, UNSPECIFIED Status: Acute (9) Altered mental status Code(s): R41.82 - ALTERED MENTAL STATUS, UNSPECIFIED Status: Acute Qualifiers: Altered mental status type: unspecified Qualified Code(s): R41.82 - Altered mental status, unspecified (10) Bipolar 1 disorder Code(s): F31.9 - BIPOLAR DISORDER, UNSPECIFIED Status: Acute (11) HTN (hypertension) Code(s): I10 - ESSENTIAL (PRIMARY) HYPERTENSION Status: Acute Qualifiers: Hypertension type: essential hypertension Qualified Code(s): I10 - Essential (primary) hypertension (12) H/O: substance abuse Code(s): Z87.898 - PERSONAL HISTORY OF OTHER SPECIFIED CONDITIONS Status: Acute - Plan Plan: Mr Rockwell is a 27yo male presenting from long term with vomiting and AMS. He was found to have severe hypercalcemia and pancreatitis. 1. Hypercalcemia DDx: familial hypocalciuric hypercalcemia vs malignancy vs TB vs drug induced vs Vit D Family hx of hypercalcemia and recurrent kidney stones. Prior ED visits with elevated Ca. He reports being previously admitted to [facility] for pancreatitis and hypercalcemia with Ca of 22. He reports that despite an extensive workup they were unable to figure out what caused his hypercalcemia. His symptoms started initially about 4 years ago. He says his Ca is normally around 11-12. On presentation it was 16.9 and trended up to 17, but after one dose of Calcitonin and Zoledronic Acid it trended down significantly. He has also received fluids and lasix. PTH was low. TSH was normal. [place] level negative. UDS negative for everything except benzos that he takes at home. 24 hr urine calcium elevated , which makes familial hypocalciuric hypercalcemia less likely - NS @ 150 - Lasix 20mg IV BID - goal urine output of 100-150ml/hr, unable to pass acuña - Vit D, PTHrP pending - Quant gold pending 2. Pancreatitis Abd CT: Moderate-large amt of fluid upper abdomen, bilateral paracolic spaces and small amount in pelvis. Lipase 3295. Pt has h/o pancreatitis 2/2 hypercalcemia in the past. - NS @ 150 - Cont to monitor - Pain control with morphine - Clear liquid diet, may back down due to patient's pain 3. SHELBIE - Baseline Cr 1.1. Cr 1.91 on admission, has downtrended s/p fluid resuscitation - Monitor output 4. Metabolic Encephalopathy, resolved - ddx: 2/2 to hypercalcemia vs psychological, has improved when calcium improved - UDS positive for Benzos - Head CT negative - HIV neg, ammonia WNL - Continue to monitor 5. Leukocytosis - Likely a result of inflammation from pancreatitis - Will trend and monitor for signs of superimposed infection - BCx pending 6. Urinary Retention - 2/2 hypercalcemia vs chronic - unable to place acuña catheter. May consider urology consult if pt unable to urinate on his own - fluid titration to UOP as above 7. Bipolar, Borderline Personality disorder, OCD - Cont home lamictal, clonidine, hydroxyzine, Fluoxetine 8. HTN - Cont home clonidine 9. Tachycardia - Sinus tachycardia on EKG - Likely 2/2 pain and agitation along with pancreatitis - Will continue fluid resuscitation and pain control 10. Rash Concerning for syphilis vs pityriasis rosea - appears to be improving, RPR was negative 11. Hypokalemia - Replete and monitor 12. Hypomagnesemia - Replete and monitor PPX: Lovenox, no GI ppx indicated at this time
[2018-03-26] MEDS ORDERED: Pantoprazole 40 MG VIAL IVP SCH (10:00)
--- NOTE | 2018-03-26 12:49 | ADD-PRG ---
DATE OF SERVICE: 03/26/2018 ADDENDUM This is an addendum to the note of Dr. Kisha Vera. SUBJECTIVE: Mr. Rockwell continues to have some epigastric abdominal pain. He has no nausea and is eat ing a clear liquid diet. On exam, he is tender in the epigastric area, but has no guarding, rebound or rigidity. His white co unt has dropped to normal at 9700. Potassium up to 3.3. Calcium is at 10.0. We will continue current management in anticipation of discharge, perhaps in 1 or 2 more days.
[2018-03-26] MEDS: traZODone HCl 50 MG TAB PO SCH (19:50)
[2018-03-27] MEDS: Sodium Chloride 0.9% 1,000 ML IV SCH ×3 (01:30→15:07)
[2018-03-27] MEDS: Furosemide 20 MG/2 ML VIAL SLOW IVP SCH (04:48)
[2018-03-27 05:17] LABS: #Basophils 0.1 thou/uL (0.0-0.2); #Eosinphils 0.2 thou/uL (0.0-0.7); #Lymphocytes 2.5 thou/uL (1.20-3.40); #Monocytes 0.5 thou/uL (0.11-0.59); #Neutrophils 3.3 thou/uL (1.40-6.50); %Basophils 0.8 % (0.0-1.0); %Lymphocytes 37.9 % (21.0-51.0); %Monocytes 8.2 % (0.0-10.0); %Neutrophils 50.1 % (42.0-75.0); Hemoglobin 10.6 g/dL (14.0-18.0); Mean Corpuscular HGB CONC 34.1 g/dL (32.0-36.0); Mean Corpuscular Hemoglobin 30.9 pg (27.0-31.0); Mean Corpuscular Volume 90.7 fL (78.0-98.0); Mean Platelet Volume 7.2 fL (7.4-10.4); Platelet Count 187 thou/uL (130-400); RBC Distribution Width 10.4 % (11.5-14.5); Red Blood Cell (RBC) Count 3.44 mill/uL (4.70-6.10); White Blood Cell (WBC) Count 6.5 thou/uL (4.8-10.8)
[2018-03-27 05:41] LABS: Anion Gap 10 mmol/L (10-20); BUN (Urea Nitrogen) 8 mg/dL (8.9-20.6); Calc. Creatinine Clearance 87 mL/min (70-130); Calcium 9.2 mg/dL (7.8-10.44); Carbon Dioxide 27 mmol/L (22-29); Chloride 109 mmol/L (98-107); Estimated GFR-MDRD 79; Glucose 81 mg/dL (70-105); Sodium 143 mmol/L (136-145)
[2018-03-27 05:47] LABS: Potassium 2.9 mmol/L (3.5-5.1)
[2018-03-27] MEDS: Potassium Chloride 20 MEQ in Premix Bag 1 BAG IVPB SCH ×3 (06:46→11:39)
[2018-03-27] MEDS: cloNIDine 0.1 MG TAB PO SCH (07:43)
[2018-03-27] MEDS: lamoTRIgine 100 MG TAB PO SCH (07:43)
[2018-03-27] MEDS: FLUoxetine HCl 20 MG CAP PO SCH (07:43)
[2018-03-27] MEDS: hydrOXYzine 25 MG TAB PO SCH (07:43)
[2018-03-27] MEDS: Enoxaparin Sodium 40 MG/0.4 ML SYRINGE SC SCH (07:44)
[2018-03-27] MEDS: Hydrocortisone 1% Cream 30 GM TUBE TOP SCH ×2 (07:44→10:27)
[2018-03-27 07:52] VITALS: BP 110/71; TEMP 98.3
--- NOTE | 2018-03-27 08:17 | PDOC.FM ---
- Subjective Subjective: Patient reports that his abdominal pain has improved. He says that it is now just mostly when he eats, but has minimal baseline pain. He describes it as a sharp pain. He reports pain upon taking a deep breath as well, but has been using the incentive spirometer. He is voiding without difficulty. He denies any fevers, N/V. - Objective MAR Reviewed: Yes Vital Signs & Weight: Vital Signs (12 hours) Temp Pulse Resp BP Pulse Ox 03/27/18 07:51 98.3 F 82 18 110/71 99 03/27/18 04:00 98.2 F 85 18 100/62 100 03/27/18 00:00 98.7 F 84 18 95/61 97 Weight Weight 62.414 kg Most Recent Monitor Data Heart Rate from ECG 125 NIBP 146/102 NIBP BP-Mean 114 Respiration from ECG 28 SpO2 7 I&O: 03/26/18 03/27/18 03/28/18 06:59 06:59 06:59 Intake Total 1900 Balance 1900 Result Diagrams: 03/27/18 04:36 03/27/18 04:36 Phys Exam - Physical Examination Constitutional: NAD HEENT: moist MMs, sclera anicteric Respiratory: no wheezing, no rales, no rhonchi, clear to auscultation bilateral Cardiovascular: RRR, no significant murmur, no rub Gastrointestinal: soft, no distention, positive bowel sounds mildly tender to palpation, worse in LUQ, no rebound Musculoskeletal: no edema, pulses present Neurological: non-focal, moves all 4 limbs Psychiatric: normal affect, A&O x 3 Skin: normal turgor, cap refill <2 seconds Dx/Plan (1) Hypercalcemia Code(s): E83.52 - HYPERCALCEMIA Status: Acute (2) Pancreatitis Code(s): K85.90 - ACUTE PANCREATITIS WITHOUT NECROSIS OR INFECTION, UNSP Status: Acute Qualifiers: Chronicity: acute Pancreatitis type: other Acute pancreatitis complication: no infection or necrosis Qualified Code(s): K85.80 - Other acute pancreatitis without necrosis or infection (3) Leukocytosis Code(s): D72.829 - ELEVATED WHITE BLOOD CELL COUNT, UNSPECIFIED Status: Acute Qualifiers: Leukocytosis type: unspecified Qualified Code(s): D72.829 - Elevated white blood cell count, unspecified (4) Hypokalemia Code(s): E87.6 - HYPOKALEMIA Status: Acute (5) Hypomagnesemia Code(s): E83.42 - HYPOMAGNESEMIA Status: Acute (6) Sinus tachycardia Code(s): R00.0 - TACHYCARDIA, UNSPECIFIED Status: Acute (7) Recurrent nephrolithiasis Code(s): N20.0 - CALCULUS OF KIDNEY Status: Acute (8) SHELBIE (acute kidney injury) Code(s): N17.9 - ACUTE KIDNEY FAILURE, UNSPECIFIED Status: Acute (9) Altered mental status Code(s): R41.82 - ALTERED MENTAL STATUS, UNSPECIFIED Status: Resolved Qualifiers: Altered mental status type: unspecified Qualified Code(s): R41.82 - Altered mental status, unspecified (10) Bipolar 1 disorder Code(s): F31.9 - BIPOLAR DISORDER, UNSPECIFIED Status: Acute (11) HTN (hypertension) Code(s): I10 - ESSENTIAL (PRIMARY) HYPERTENSION Status: Acute Qualifiers: Hypertension type: essential hypertension Qualified Code(s): I10 - Essential (primary) hypertension (12) H/O: substance abuse Code(s): Z87.898 - PERSONAL HISTORY OF OTHER SPECIFIED CONDITIONS Status: Acute (13) Metabolic encephalopathy Code(s): G93.41 - METABOLIC ENCEPHALOPATHY Status: Resolved - Plan Plan: Mr Rockwell is a 27yo male presenting from [facility] with vomiting and AMS. He was found to have severe hypercalcemia and pancreatitis. 1. Hypercalcemia DDx: familial hypocalciuric hypercalcemia vs malignancy vs TB vs drug induced vs Vit D Family hx of hypercalcemia and recurrent kidney stones. Prior ED visits with elevated Ca around 11-12. He reports being previously admitted to [facility] for pancreatitis and hypercalcemia with Ca of 22. He reports that despite an extensive workup they were unable to figure out what caused his hypercalcemia. His symptoms started initially about 4 years ago. He says his Ca is normally around 11-12. On presentation it was 16.9 and trended up to 17, but after one dose of Calcitonin and Zoledronic Acid it trended down significantly. He has also received fluids and lasix. PTH was low. TSH was normal. [place] level negative. UDS negative for everything except benzos that he takes at home. 24 hr urine calcium elevated, however it was collected while pt was receiving lasix and IVF. - NS @ 150 - Will decrease lasix to 20mg IV today and then to 20mg PO tomorrow for maintenance as pt is normocalcemic at this time. - Vit D, PTHrP pending - Quant gold pending 2. Pancreatitis Abd CT: Moderate-large amt of fluid upper abdomen, bilateral paracolic spaces and small amount in pelvis. Lipase 3295. Pt has h/o pancreatitis 2/2 hypercalcemia in the past. - NS @ 150 - Cont to monitor - Pain control with morphine - Clear liquid diet 3. SHELBIE, resolved - Baseline Cr 1.1. Cr 1.91 on admission, has downtrended s/p fluid resuscitation - Monitor output 4. Metabolic Encephalopathy, resolved - ddx: 2/2 to hypercalcemia vs psychological, has improved when calcium improved so more likely 2/2 hypercalcemia - UDS positive for Benzos - Head CT negative - HIV neg, ammonia WNL - Continue to monitor 5. Leukocytosis, resolved - Likely a result of inflammation from pancreatitis. Has improved after IVF. - Will monitor for signs of superimposed infection - BCx pending 6. Urinary Retention, resolved - 2/2 hypercalcemia vs chronic - unable to place acuña catheter. May consider urology consult if pt unable to urinate on his own. Pt currently voiding without difficulty. 7. Bipolar, Borderline Personality disorder, OCD - Cont home lamictal, clonidine, hydroxyzine, Fluoxetine 8. HTN - Cont home clonidine 9. Sinus Tachycardia - Sinus tachycardia on EKG - Likely 2/2 pain and agitation along with pancreatitis - Will continue fluid resuscitation and pain control 10. Rash Concerning for syphilis vs pityriasis rosea - appears to be improving, RPR was negative 11. Hypokalemia - Replete and monitor 12. Hypomagnesemia - Replete and monitor PPX: Lovenox, no GI ppx indicated at this time
[2018-03-27] MEDS ORDERED: Pantoprazole 40 MG VIAL IVP SCH (09:00)
[2018-03-27] MEDS ORDERED: Magnesium Oxide 400 MG TAB PO SCH (09:00)
[2018-03-27] MEDS ORDERED: Potassium Chloride 20 MEQ TAB PO SCH (11:00)
--- NOTE | 2018-03-27 11:28 | ADD-PRG ---
DATE OF SERVICE: 03/27/2018 This is an addendum to the note of Dr. Kisha Vera. Mr. Rockwell feels better this morning. He is having less abdominal pain and we will advance his diet. His potassium unfortunately is down to 2.9 and we will be correcting this p.o. as he refuses IV. Af ter getting potassium up to at least 3.5 can likely discharge him either later today or tomorrow.
[2018-03-27] MEDS ORDERED: Magnesium Sulfate 2 GM in Sodium Chloride 0.9% 100 ML IVPB SCH (11:30)
[2018-03-27 14:40] LABS: Anion Gap 9 mmol/L (10-20); BUN (Urea Nitrogen) 7 mg/dL (8.9-20.6); Calc. Creatinine Clearance 80 mL/min (70-130); Calcium 9.8 mg/dL (7.8-10.44); Carbon Dioxide 31 mmol/L (22-29); Chloride 107 mmol/L (98-107); Estimated GFR-MDRD 71; Glucose 108 mg/dL (70-105); Potassium 3.5 mmol/L (3.5-5.1); Sodium 143 mmol/L (136-145)
[2018-03-27] MEDS ORDERED: traMADol HCl 50 MG TAB PO PRN (14:53)
--- NOTE | 2018-03-28 03:30 | DIS-2 ---
DATE OF ADMISSION: 03/24/2018 DATE OF DISCHARGE: 03/27/2018 ADMITTING ATTENDING: Kristin Potter M.D. DISCHARGE ATTENDING: Jim Kwok MD ADMITTING RESIDENT: Melissa Ruiz MD DISCHARGE RESIDENT: Kisha Vera MD CONSULTATIONS: Dr. Quintana with pulmonology. PROCEDURES: None. IMAGIN. Abdomen and pelvis CT showed moderate to large amount of fluid in the upper abdomen, bilateral pe ricolic spaces, and small amount in the pelvis suspicious for pancreatitis. Left renal nonobstructiv e stones. 2. Brain CT showed no evidence of acute intracranial hemorrhage or large-vessel infarction. PRIMARY DIAGNOSES: 1. Severe symptomatic hypercalcemia.: 2. Acute pancreatitis. 3. Metabolic encephalopathy. 4. Acute kidney injury. 5. Leukocytosis. 6. Urinary retention. 7. Sinus tachycardia. 8. Hypokalemia. 9. Hypomagnesemia. SECONDARY DIAGNOSES: 1. Hypertension. 2. Bipolar disorder. 3. Borderline personality disorder. 4. Obsessive compulsive disorder. DISCHARGE MEDICATIONS: 1. Clonidine 0.1 mg p.o. b.i.d. 2. Fluoxetine 40 mg p.o. daily. 3. Furosemide 20 mg p.o. daily. 4. Hydrocortisone 1% one-gram topical t.i.d. 5. Hydroxyzine 50 mg p.o. b.i.d. 6. Lamotrigine 200 mg p.o. b.i.d. 7. Tramadol 50 mg p.o. q.6 hours for 5 days p.r.n. pain. 8. Trazodone 50 mg p.o. at bedtime. 9. Cetirizine 10 mg p.o. daily. 10. Flexeril 10 mg p.o. b.i.d. 11. Flonase 16 grams one spray each naris daily. 12. Protonix 40 mg p.o. daily. 13. Potassium chloride 20 mEq p.o. daily. DISCONTINUED MEDICATIONS: None. HISTORY OF PRESENT ILLNESS AND HOSPITAL COURSE: This is a 27-year-old male with past medical history of hypercalcemia and bipolar disorder, who presented from longterm due to altered mental status and abdo samir pain was found to have a calcium of 16.9 as well as pancreatitis. The patient's calcium trende d up to 17.0. The patient was given calcitonin zoledronic acid as well as bolused several liters of fluid and his calcium trended down to 12.9. The patient was then started on maintenance fluids and g iven Lasix. The patient had been n.p.o. for his pancreatitis and the patient had several labs that w ere checked and many of them are still pending at this time as far as trying to determine the cause o f his hypercalcemia. The parathyroid hormone came back low. TSH came back normal and a 24-hour urin e calcium came back elevated. His lithium level came back negative and his UDS was negative except f or benzodiazepines and he reports taking at home. He still has vitamin D, parathyroid hormone relate d peptide, and Quant gold pending. Patient's calcium was also normal after a couple of days of fluid s as well as Lasix. The patient was able to be advanced to clear liquids on his second day of hospit alization without much pain with no nausea. The patient also had an acute kidney injury with a creat inine of 1.91 on admission and this downtrended after fluid resuscitation. The patient's mental stat us improved significantly after his calcium returned to normal. The patient also with significantly tachycardic initially to 130s, but this improved after his calcium improved and pancreatitis improved . The patient initially had a leukocytosis of 16.1; however, this improved with IV fluids as well. The patient has a history of having an episode of pancreatitis due to a calcium of 22 that was treate d at the [facility], they were unable to get records during his hospitalization. Patient also reports [facility] multiple specialists for his hypercalcemia that they were unable to come up with the cause of this . He is currently in longterm at this time, he would be unable to follow up with an corduroy cutting supervisor, so he was recommended for him to follow up with him once he is released from longterm. He did have some low potassium and magnesium during his hospitalization; however, these were completed. He was discharge d home on a low dose 20 mg oral Lasix to attempt to prevent his calcium from building up that high. He was also encouraged to drink lots of fluids. DISPOSITION: Stable. DISCHARGE INSTRUCTIONS: 1. Location: Retirement. 2. Diet: Soft, low fat for 2 days, and advance as tolerated. 3. Activity: As tolerated. 4. Follow up with PCP within 7 days and with an corduroy cutting supervisor once released from longterm.
[2018-03-28] MEDS ORDERED: Potassium Chloride 10 MEQ TAB PO SCH (08:00)
[2018-03-28] MEDS ORDERED: Potassium Chloride 20 MEQ TAB PO SCH (08:00)
[2018-03-28] MEDS ORDERED: Furosemide 20 MG TAB PO SCH (09:00)
[2018-03-30 08:41] LABS: Reference Lab Name LABCORP
== END 2018-03-27 17:38 | DRG 640 ==
LOC: ERS 23:41 → CCU 03-24 02:37 → 2NO 03-24 12:51 → T4-A 03-25 12:54
PROVIDERS: ADMIT Family Medicine; ATTEND Family Medicine
DX: E83.52 Hypercalcemia (principal); G93.41 Metabolic encephalopathy; K85.90 Acute pancreatitis without necrosis or infection, unspecified; F31.9 Bipolar disorder, unspecified; F60.3 Borderline personality disorder; Z83.49 Family history of other endocrine, nutritional and metabolic diseases; E87.6 Hypokalemia; E83.42 Hypomagnesemia; R00.0 Tachycardia, unspecified; R33.9 Retention of urine, unspecified; F42.9 Obsessive-compulsive disorder, unspecified; I10 Essential (primary) hypertension; Z87.891 Personal history of nicotine dependence
CPT/HCPCS: 36415; 36416; 70450; 71045; 74177; 80048; 80053; 80178; 80306; 80307; 81003; 81015; 82140; 82306; 82340; 83615; 83690; 83735; 83970; 84100; 84443; 85025; 86480; 86780; 86803; 87040; 87086; 87389; 87491; 87591; 93005; A4216; C9113; J1650; J1940; J2060; J2270; J3475; J3480; J3489; J7050

== ENCOUNTER 2019-04-13 14:08 | Emergency (ER) | payer BC, OTHER ==
[2019-04-13] MEDS ORDERED: Morphine 4 MG/ML VIAL ONE ×2 (14:50→15:50)
[2019-04-13] MEDS ORDERED: Pantoprazole 40 MG VIAL ONE (14:50)
[2019-04-13 15:05] LABS: #Basophils 0.1 thou/uL (0.0-0.2); #Lymphocytes 1.2 thou/uL (1.20-3.40); #Monocytes 0.9 thou/uL (0.11-0.59); #Neutrophils 10.9 thou/uL (1.40-6.50); %Basophils 0.6 % (0.0-1.0); %Eosinophils 0.1 % (0.0-10.0); %Monocytes 7.2 % (0.0-10.0); %Neutrophils 83.2 % (42.0-75.0); Hemoglobin 16.6 g/dL (14.0-18.0); Mean Corpuscular HGB CONC 33.5 g/dL (32.0-36.0); Mean Corpuscular Volume 89.6 fL (78.0-98.0); Mean Platelet Volume 6.8 fL (7.4-10.4); Platelet Count 260 thou/uL (130-400); RBC Distribution Width 11.1 % (11.5-14.5); Red Blood Cell (RBC) Count 5.55 mill/uL (4.70-6.10)
[2019-04-13 15:21] LABS: ALT (SGPT) 13 U/L (8-55); AST (SGOT) 13 U/L (5-34); Albumin 4.4 g/dL (3.5-5.0); Alkaline Phosphatase 75 U/L (40-150); Anion Gap 14 mmol/L (10-20); BUN (Urea Nitrogen) 14 mg/dL (8.9-20.6); Bilirubin, Total 0.5 mg/dL (0.2-1.2); CK (CPK) 45 U/L (30-200); Calc. Creatinine Clearance 0 mL/min (70-130); Calcium 11.7 mg/dL (7.8-10.44); Carbon Dioxide 28 mmol/L (22-29); Chloride 103 mmol/L (98-107); Estimated GFR-MDRD 86; Globulin 3.1 g/dL (2.4-3.5); Glucose 121 mg/dL (70-105); Lipase 713 U/L (8-78); Potassium 4.3 mmol/L (3.5-5.1); Protein, Total 7.5 g/dL (6.0-8.3); Sodium 141 mmol/L (136-145)
--- NOTE | 2019-04-13 16:30 | RAD ---
PORTABLE CHEST ONE VIEW: 04/13/19 at 3:04 p.m. HISTORY: Chest pain. FINDINGS: Comparison made with exam of 03/23/18. The heart size is normal. The lungs are expanded without focal areas of consolidation, pneumothoraces or pleural effusions. IMPRESSION: No radiographic evidence of acute cardiopulmonary process. POS: [facility]
== END 2019-04-13 17:30 | disposition short-term general hospital (02) ==
LOC: SCSER 14:08
DX: K85.90 Acute pancreatitis without necrosis or infection, unspecified (principal); E83.52 Hypercalcemia; F41.9 Anxiety disorder, unspecified; F31.9 Bipolar disorder, unspecified; F42.9 Obsessive-compulsive disorder, unspecified; F60.3 Borderline personality disorder; Z79.899 Other long term (current) drug therapy
CPT/HCPCS: 71045; 80053; 82550; 83690; 84484; 85025; 85379; 93005; 94760; 96361; 96374; 96375; 96376; C9113; J2270